=== PATIENT | male | born 1995 | race American Indian/Alaskan Native ===

== ENCOUNTER 2018-02-10 23:39 | Emergency (ER) | payer MEDICAID ==
[2018-02-11] MEDS ORDERED: methylPREDNISolone Sodium Succinate 125 MG/2 ML SDV IM ONE (00:05)
[2018-02-11] MEDS ORDERED: Albuterol/Ipratropium 3.0-0.5 MG/3 ML Neb Soln NEB ONE (00:05)
--- NOTE | 2018-02-11 00:10 | EDM.PDOC ---
ED HPI GENERAL MEDICAL PROBLEM - General Chief Complaint: Respiratory Problem Stated Complaint: BRONCHITIS [id number] Time Seen by Provider: 02/11/18 00:06 Source of Information: Reports: Patient History Limitations: Reports: No Limitations - History of Present Illness INITIAL COMMENTS - FREE TEXT/NARRATIVE: coughing for a week not getting better. admits to smoking and drinking lot of energy drinks Headache Pain Score (Numeric/FACES): 7 - Related Data Allergies Allergy/AdvReac Type Severity Reaction Status Date / Time No Known Allergies Allergy Verified 02/10/18 23:43 Home Meds: Home Meds . [No Known Home Meds] 02/10/18 [History] Social & Family History - Family History Family Medical History: Noncontributory - Tobacco Use Smoking Status *Q: Never Smoker Second Hand Smoke Exposure: Yes - Caffeine Use Caffeine Use: Reports: Coffee, Energy Drinks, Soda, Tea - Recreational Drug Use Recreational Drug Use: Yes Recreational Drug Type: Reports: Marijuana/Hashish Recreational Drug Use Frequency: Daily ED ROS GENERAL - Review of Systems Review Of Systems: ROS reveals no pertinent complaints other than HPI. ED EXAM, GENERAL - Physical Exam Exam: See Below Exam Limited By: No Limitations General Appearance: Alert, WD/WN, Mild Distress, Other (discomfort) Ears: Hearing Grossly Normal Throat/Mouth: Normal Voice, No Airway Compromise Head: Atraumatic Neck: Non-Tender, Full Range of Motion Respiratory/Chest: No Respiratory Distress, No Accessory Muscle Use, Rhonchi, Wheezing. No: Decreased Breath Sounds, Prolonged Expiration Cardiovascular: Regular Rate, Rhythm GI/Abdominal: Soft, Non-Tender Neurological: Alert, Oriented, Normal Cognition, Normal Gait, No Motor/Sensory Deficits Psychiatric: Normal Affect, Normal Mood Skin Exam: Warm, Dry, Normal Color Lymphatic: No Adenopathy Course - Vital Signs Last Recorded V/S: Last Vital Signs Temp 37.2 C 02/10/18 23:43 Pulse 95 02/10/18 23:43 Resp 18 02/10/18 23:43 BP 136/76 02/10/18 23:43 Pulse Ox 97 02/10/18 23:43 - Orders/Labs/Meds Orders: Active Orders 24 hr Category Date Time Status RT Aerosol Therapy [RC] ASDIRECTED Care 02/11/18 00:05 Active Meds: Medications Discontinued Medications Generic Name Dose Route Start Last Admin Trade Name Freq PRN Reason Stop Dose Admin Albuterol/Ipratropium 3 ml 02/11/18 00:05 02/11/18 00:30 Duoneb 3.0-0.5 Mg/3 Ml NEB 02/11/18 00:06 3 ml ONETIME ONE Administration Methylprednisolone Sodium Succinate 125 mg 02/11/18 00:05 02/11/18 00:29 Solu-Medrol IM 02/11/18 00:06 125 mg ONETIME ONE Administration - Re-Assessments/Exams Free Text/Narrative Re-Assessment/Exam: 02/11/18 00:45 s/p duoneb + IM solumedrol = much better Departure - Departure Time of Disposition: 00:46 Disposition: Home, Self-Care 01 Condition: Good Clinical Impression: Bronchospasm with bronchitis, acute - Discharge Information Instructions: Acute Bronchitis, Adult, [id number] Forms: ED Department Discharge Additional Instructions: 1) rest 2) try cut down on smoking 3) don't sleep flat at ight 4) follow up at clinic rx given; z-glenna medrol dospak albuterol inhaler - My Orders Last 24 Hours: My Active Orders 02/11/18 00:05 RT Aerosol Therapy [RC] ASDIRECTED - Assessment/Plan Last 24 Hours: My Active Orders 02/11/18 00:05 RT Aerosol Therapy [RC] ASDIRECTED
== END 2018-02-11 00:53 | disposition home or self-care (01) ==
LOC: DL.ED 23:39
DX: J20.9 Acute bronchitis, unspecified (principal)
CPT/HCPCS: 96372; 99282; J2930

== ENCOUNTER 2019-01-02 01:56 | Emergency (ER) | payer MEDICAID ==
[2019-01-02] MEDS ORDERED: Ketorolac 30 MG/ML SDV IM ONE (02:19)
[2019-01-02] MEDS ORDERED: Sodium Chloride 0.9% 1,000 ML IV ONE (02:19)
[2019-01-02] MEDS ORDERED: Sodium Chloride 0.9% 10 ML Syringe FLUSH PRN (02:19)
--- NOTE | 2019-01-02 02:26 | EDM.PDOC ---
ED HPI GENERAL MEDICAL PROBLEM - General Chief Complaint: Neck Problem Stated Complaint: NECK CRAMPS [id number] Time Seen by Provider: 01/02/19 02:15 Source of Information: Reports: Patient, Family, RN, RN Notes Reviewed History Limitations: Reports: No Limitations - History of Present Illness INITIAL COMMENTS - FREE TEXT/NARRATIVE: Pt to ER with c/o stiff neck, neck cramps. Patient's girlfriend answers most questions for him. She states he woke up at midnight with the neck cramps and pain. Denies taking anything for the pain. States has tried ice and heat without help. States this has happened in the past and they gave him IV fluids and he felt much better. Denies fever or chills. Denies sore throat. Onset: Today, Sudden Neck Pain Score (Numeric/FACES): 5 - Related Data Allergies Allergy/AdvReac Type Severity Reaction Status Date / Time No Known Allergies Allergy Verified 01/02/19 02:06 Home Meds: Home Meds . [No Known Home Meds] 02/10/18 [History] Past Medical History - Past Health History Medical/Surgical History: Denies Medical/Surgical History Social & Family History - Family History Family Medical History: Noncontributory - Tobacco Use Smoking Status *Q: Never Smoker Second Hand Smoke Exposure: Yes - Caffeine Use Caffeine Use: Reports: Coffee, Energy Drinks, Soda, Tea Caffeine Use Comment: Heaver drinker of energy drinks - Recreational Drug Use Recreational Drug Use: Yes Drug Use in Last 12 Months: Yes Recreational Drug Type: Reports: Marijuana/Hashish ED ROS GENERAL - Review of Systems Review Of Systems: ROS reveals no pertinent complaints other than HPI. ED EXAM, UPPER BACK/NECK PAIN - Physical Exam Exam: See Below Exam Limited By: No Limitations General Appearance: Alert, WD/WN, Anxious, Moderate Distress Eye Exam: Bilateral Eye: EOMI, Normal Inspection Ears Exam: Normal External Exam, Hearing Grossly Normal Nose Exam: Normal Inspection Throat/Mouth Exam: Normal Inspection, Normal Voice, No Airway Compromise Head Exam: Atraumatic, Normocephalic Neck Exam: Limited Range of Motion, Muscle Spasm, Stiff Neck, Tenderness, Tender Lateral Nexus Criteria: No: Posterior, Midline Cervical Tenderness, Evidence of Intoxication, Altered Level of Consciousness, Focal Neurological Deficit, Painful Distraction Injuries Cardiovascular/Respiratory: Regular Rate, Rhythm, No M/R/G, Normal Peripheral Pulses, No JVD, Normal Breath Sounds, No Respiratory Distress GI/Abdominal: Normal Bowel Sounds, Soft, Non-Tender (Male) Exam: Deferred Rectal (Males) Exam: Deferred Back Exam: Normal Inspection, Full Range of Motion, NT Extremities: Normal Inspection, Normal Range of Motion, Non-Tender, No Pedal Edema, Normal Capillary Refill Neurologic: generation technologist II-XII nml As Tested, No Motor/Sensory Deficits, Alert, Normal Mood/Affect, Oriented x 3 Psychiatric: Anxious, Flat Affect Skin Exam: Normal Color, Warm/Dry Lymphatic: No Adenopathy Course - Vital Signs Last Recorded V/S: Last Vital Signs Temp 98.3 F 01/02/19 02:02 Pulse 106 H 01/02/19 02:02 Resp 18 01/02/19 02:02 BP 141/76 H 01/02/19 02:02 Pulse Ox 97 01/02/19 02:02 - Orders/Labs/Meds Orders: Active Orders 24 hr Category Date Time Status Peripheral IV Care [RC] . DIRECTED Care 01/02/19 02:19 Active Orphenadrine [Norflex] Med 01/02/19 02:30 Active 60 mg IM Q12H Sodium Chloride 0.9% [Saline Flush] Med 01/02/19 02:19 Active 10 ml FLUSH ASDIRECTED PRN Peripheral IV Insertion Adult [OM.PC] Stat Oth 01/02/19 02:19 Ordered Medication Orders Orphenadrine Citrate (Norflex) 60 mg IM Q12H BINA Last Admin: 01/02/19 02:34 Dose: 60 mg Sodium Chloride (Saline Flush) 10 ml FLUSH ASDIRECTED PRN PRN Reason: Keep Vein Open Last Admin: 01/02/19 02:35 Dose: 10 ml Meds: Medications Generic Name Dose Route Start Last Admin Trade Name Freq PRN Reason Stop Dose Admin Orphenadrine Citrate 60 mg 01/02/19 02:30 01/02/19 02:34 Norflex IM 60 mg Q12H BINA Administration Sodium Chloride 10 ml 01/02/19 02:19 01/02/19 02:35 Saline Flush FLUSH 10 ml ASDIRECTED PRN Administration Keep Vein Open Discontinued Medications Generic Name Dose Route Start Last Admin Trade Name Freq PRN Reason Stop Dose Admin Sodium Chloride 1,000 mls @ 999 mls/hr 01/02/19 02:19 01/02/19 02:34 Normal Saline IV 01/02/19 03:19 999 mls/hr .BOLUS ONE Administration Ketorolac Tromethamine 30 mg 01/02/19 02:19 01/02/19 02:35 Toradol IM 01/02/19 02:20 30 mg ONETIME ONE Administration Departure - Departure Time of Disposition: 03:35 Disposition: Home, Self-Care 01 Condition: Good Clinical Impression: Muscle spasm - Discharge Information *PRESCRIPTION DRUG MONITORING PROGRAM REVIEWED*: No *COPY OF PRESCRIPTION DRUG MONITORING REPORT IN PATIENT MOISES: No Instructions: Muscle Cramps and Spasms, [id number], Heat Therapy, Easy-to- Read Forms: ED Department Discharge Additional Instructions: May use Tylenol and/or ibuprofen as directed for pain Heat the area as tolerated Follow up with your primary care facility if no improvement - My Orders Last 24 Hours: My Active Orders 01/02/19 02:19 Peripheral IV Care [RC] . DIRECTED Sodium Chloride 0.9% [Saline Flush] 10 ml FLUSH ASDIRECTED PRN Peripheral IV Insertion Adult [OM.PC] Stat 01/02/19 02:30 Orphenadrine [Norflex] 60 mg IM Q12H - Assessment/Plan Last 24 Hours: My Active Orders 01/02/19 02:19 Peripheral IV Care [RC] . DIRECTED Sodium Chloride 0.9% [Saline Flush] 10 ml FLUSH ASDIRECTED PRN Peripheral IV Insertion Adult [OM.PC] Stat 01/02/19 02:30 Orphenadrine [Norflex] 60 mg IM Q12H
== END 2019-01-02 03:39 | disposition home or self-care (01) ==
LOC: DL.ED 01:56
DX: M62.830 Muscle spasm of back (principal); Z77.22 Contact with and (suspected) exposure to environmental tobacco smoke (acute) (chronic)
CPT/HCPCS: 96360; 96372; 99283; J1885; J2360; J7030

== ENCOUNTER 2019-01-02 12:30 | Emergency (ER) | payer MEDICAID ==
--- NOTE | 2019-01-02 13:02 | EDM.PDOC ---
ED HPI GENERAL MEDICAL PROBLEM - General Chief Complaint: Neck Problem Stated Complaint: PINCHED NERVE [id number] Time Seen by Provider: 01/02/19 12:50 Source of Information: Reports: Patient History Limitations: Reports: No Limitations - History of Present Illness INITIAL COMMENTS - FREE TEXT/NARRATIVE: This 23 yo male patient reports to the ED with continued neck pain. The patient reports his pain started last night at about midnight. The patient was seen in the ED earlier this morning due to the pain in his neck. The patient reports he had little to no relief from treatments given while in the ED. Records were reviewed demonstrating the patient reported symptom improvement after IV fluids , Toradol and Norflex. The patient reports he has not been taking any over the counter medications for symptom relief. The patient reports that he does not have a primary care facility and has not been seen in the clinic. The patient does have a past surgical scar to the area where the pain originates. The patient reports he had a calcium deposit removed from the back of his neck in the past. Onset: Today Onset Date: 01/02/19 Onset Time: 00:00 Duration: Constant, Getting Worse Location: Reports: Neck (posterior neck) Quality: Reports: Ache Severity: Severe Improves with: Reports: Rest Worsens with: Reports: Movement Context: Reports: Other Neck Pain Score (Numeric/FACES): 5 - Related Data Allergies Allergy/AdvReac Type Severity Reaction Status Date / Time No Known Allergies Allergy Verified 01/02/19 12:40 Home Meds: Home Meds . [No Known Home Meds] 02/10/18 [History] Past Medical History - Past Health History Medical/Surgical History: Denies Medical/Surgical History Social & Family History - Family History Family Medical History: Noncontributory - Tobacco Use Smoking Status *Q: Never Smoker Second Hand Smoke Exposure: Yes - Caffeine Use Caffeine Use: Reports: Energy Drinks Caffeine Use Comment: Heaver drinker of energy drinks - Recreational Drug Use Recreational Drug Use: Yes Drug Use in Last 12 Months: Yes Recreational Drug Type: Reports: Marijuana/Hashish Other Recreational Drug Type: today Recreational Drug Use Frequency: Weekly ED ROS GENERAL - Review of Systems Review Of Systems: ROS reveals no pertinent complaints other than HPI. ED EXAM, UPPER BACK/NECK PAIN - Physical Exam Exam: See Below Exam Limited By: No Limitations General Appearance: Alert, WD/WN, Mild Distress Eye Exam: Bilateral Eye: EOMI, Normal Inspection, PERRL Ears Exam: Normal External Exam, Normal Canal, Hearing Grossly Normal, Normal TMs Nose Exam: Normal Inspection, Normal Mucousa, No Blood Throat/Mouth Exam: Normal Inspection, Normal Lips, Normal Teeth, Normal Gums, Normal Oropharynx, Normal Voice, No Airway Compromise Head Exam: Atraumatic, Normocephalic Neck Exam: Painful Range of Motion (posterior neck stiffness (patient was able to move his neck slowly during the examination). ), Tenderness (The patient reports tenderness to palpation of the lower neck, but the tenderness increased with palpation of the lateral neck. ) Nexus Criteria: No: Posterior, Midline Cervical Tenderness, Evidence of Intoxication, Altered Level of Consciousness, Focal Neurological Deficit, Painful Distraction Injuries Cardiovascular/Respiratory: Regular Rate, Rhythm, No M/R/G, Normal Peripheral Pulses, No JVD, Normal Breath Sounds, No Respiratory Distress GI/Abdominal: Normal Bowel Sounds, Soft, Non-Tender, No Organomegaly, No Distention, No Abnormal Bruit, No Mass (Male) Exam: Deferred Rectal (Males) Exam: Deferred Back Exam: Normal Inspection, Full Range of Motion, NT Extremities: Normal Inspection, Normal Range of Motion, Non-Tender, No Pedal Edema, Normal Capillary Refill Neurologic: education paraprofessional II-XII nml As Tested, No Motor/Sensory Deficits, Alert, Normal Mood/Affect, Oriented x 3 Psychiatric: Normal Affect, Normal Mood Skin Exam: Normal Color, Warm/Dry Course - Vital Signs Last Recorded V/S: Last Vital Signs Temp 37.7 C 01/02/19 12:33 Pulse 104 H 01/02/19 12:33 Resp 18 01/02/19 12:33 BP 154/93 H 01/02/19 12:33 Pulse Ox 97 01/02/19 12:33 Departure - Departure Time of Disposition: 13:03 Disposition: Home, Self-Care 01 Condition: Fair Clinical Impression: Muscle spasm, Neck muscle strain - Discharge Information Instructions: Muscle Cramps and Spasms, [id number], Cervical Sprain, Easy-to- Read Care Plan Goals: The patient was advised of the examination results during the visit. The patient was given a script for Toradol (10 mg) #20 to take 1 by mouth every 6 hours and Flexeril (10 mg) #20 to take 1 by mouth every 6 hours as needed. The patient should not operate a motor vehicle while taking the Flexeril. The patient may take Tylenol as directed for temporary symptom relief. The patient was encouraged to use heat to the area. If the patient has any additional symptoms or concerns, the patient should either return to the emergency department or visit a primary care facility.
== END 2019-01-02 13:19 | disposition home or self-care (01) ==
LOC: DL.ED 12:30
DX: S16.1XXA Strain of muscle, fascia and tendon at neck level, initial encounter (principal); M62.838 Other muscle spasm; Z77.22 Contact with and (suspected) exposure to environmental tobacco smoke (acute) (chronic); X58.XXXA Exposure to other specified factors, initial encounter
CPT/HCPCS: 99283